=== PATIENT | male | born 1960 | race Caucasian/White ===

== ENCOUNTER → 2016-12-19 | Outpatient (CLI) | payer OTHER ==
[~2016-12-19] MED LIST: REGADENOSON INJ 0.4 MG/5 ML DISP.SYRIN IV ONE
--- NOTE | 2016-12-20 08:20 | RADIOLOGY REPORT ---
STRESS TEST REPORT [id number] RO[facility]#: DATE OF SERVICE: 12/19/2017 AGE: 56Y ORDER#: [id number] REFERRING MD: Rodolfo Solano M.D. INDICATION For assessment of chest pains. PROCEDURE PERFORMED REST/STRESS SINGLE ISOTOPE CARDIOLITE SPECT IMAGING WITH IV LEXISCAN STRESS AND GATED SPECT IMAGING CLINICAL HISTORY This is 56-year-old male patient with no known coronary artery disease, but known to have cerebrovascular disease, hypertension and hypercholesterolemia. Current symptomatology includes chest pains. PROCEDURE The patient received IV Lexiscan 0.4 mg infused over ten seconds and flushed. The resting heart rate was 61 bpm and increased to 101 bpm at end infusion. The resting BP was 133/76 and increased to 155/96 at end infusion. The patient had symptoms of flushing, nausea and transient shortness of breath. He had no chest pains. Resting 12 lead EKG showed normal sinus rhythm at 68 bpm. Early transition, nonspecific infero-apical T-inversions were seen. At end infusion, increased T-inversion,diffuse, was seen on EKG. Myocardial perfusion imaging was performed at rest 60 minutes following injection of 14.99 mCi Cardiolite. Ten seconds after IV Lexiscan injection, patient was injected with 42 mCi Cardiolite and flushed. Gated post stress tomographic imaging was performed 60 minutes after stress. FINDINGS The overall quality of the study is fair. Left ventricular cavity is noted to be normal in size on both the rest and stress studies. There is no evidence of abnormal transient ischemic dilatation of the left ventricle TID ratio was 1.09. SPECT images showed no IV Lexiscan induced reversible ischemia. No fixed perfusion defects. The gated SPECT imaging showed normal motion and contraction of all LV segments. The left ventricular ejection fraction was calculated to be 51%. IMPRESSION: MYOCARDIAL PERFUSION IMAGING IS NORMAL. THERE IS NO EVIDENCE OF IV LEXISCAN INDUCED REVERSIBLE ISCHEMIA OR FIXED PERFUSION DEFECTS. OVERALL LEFT VENTRICULAR SYSTOLIC FUNCTION WAS LOW NORMAL AT 51% AND THERE WAS NO REGIONAL WALL MOTION ABNORMALITY. INTERPRETING PHYSICIAN: BAYLEE ARROYO M.D. /: AMRIT TT: [id number] ID: [id number] /: [id number] TD: [id number] JOB: [id number] cc:Christiane ZAMORA, MD, [facility] > MTDD
== END ==
LOC: RAD 06:50
PROVIDERS: ATTEND Family Medicine
DX: R07.9 Chest pain, unspecified (principal)
CPT/HCPCS: 93017; 78452; A9500; J2785; Q9969

== ENCOUNTER 2018-05-01 23:43 | Emergency (ER) | payer OTHER ==
[2018-05-02] MEDS ORDERED: NORMAL SALINE 1000 ML 1,000 ML IV ONE (00:28)
[2018-05-02] MEDS ORDERED: KETOROLAC TROMETHAMINE INJ/PF 30 MG/1 ML SDV IV ONE (00:28)
[2018-05-02] MEDS ORDERED: ONDANSETRON HCL INJ/PF 4 MG/2 ML SDV IV ONE (00:28)
--- NOTE | 2018-05-02 00:32 | ER Document Report ---
ED General - General Chief Complaint: Flank Pain Stated Complaint: BACK PAIN,TROUBLE URINATING Time Seen by Provider: 05/02/18 00:19 Notes: Patient is a 57-year-old male who presents with complaint of left-sided flank pain that starts in the back and radiates around to the left testicle region. Some nausea. No vomiting. He has noticeable bit of pressure when he urinates and his urine today is been dark. He first noticed the back pain about a week ago and saw his doctor and was treated for a possible pinched nerve in his back. Last few days he developed the pain going to his testicles and the nausea. Movement or twisting is not make pain worse. He does have a previous history of kidney stone. TRAVEL OUTSIDE OF THE [place] IN LAST 30 DAYS: No - Related Data Allergies/Adverse Reactions: No Known Allergies Allergy (Verified 06/24/15 14:28) Past Medical History - Social History Smoking Status: Never Smoker Frequency of alcohol use: None Drug Abuse: None Family History: Reviewed & Not Pertinent - Past Medical History Cardiac Medical History: Denies: Hx Coronary Artery Disease, Hx Heart Attack, Hx Hypertension Pulmonary Medical History: Denies: Hx Asthma, Hx Bronchitis, Hx COPD, Hx Pneumonia, Hx Tuberculosis Neurological Medical History: Denies: Hx Cerebrovascular Accident, Hx Seizures Renal/ Medical History: Reports: Hx Kidney Stones. Denies: Hx Benign Prostatic Hyperplasia, Hx End Stage Renal Disease, Hx Peritoneal Dialysis GI Medical History: Reports: Hx Gastroesophageal Reflux Disease Musculoskeletal Medical History: Denies Hx Arthritis Past Surgical History: - Immunizations Hx Diphtheria, Pertussis, Tetanus Vaccination: No - unsure Hx Pneumococcal Vaccination: 05/19/11 Review of Systems - Review of Systems Notes: My Normal Review Basic REVIEW OF SYSTEMS: CONSTITUTIONAL : Denies fever, chills, or sweats. Denies recent illness. EENT: Denies eye, ear, throat, or mouth pain or symptoms. Denies nasal or sinus congestion. CARDIOVASCULAR: Denies chest pain. RESPIRATORY: Denies cough, cold, or chest congestion. Denies shortness of breath, difficulty breathing, or wheezing. GASTROINTESTINAL: Left flank pain. Some nausea. GENITOURINARY: Dark urine. Some pain rating into the testicle. MUSCULOSKELETAL: Left back pain SKIN: Denies rash or skin lesions. NEUROLOGICAL: Denies altered mental status or loss of consciousness. Denies headache. Denies weakness or paralysis or loss of use of either side. Denies problems with gait or speech. Denies sensory or motor loss. ALL OTHER SYSTEMS REVIEWED AND NEGATIVE. Physical Exam - Vital signs Vitals: Temp Pulse Resp BP Pulse Ox 98.6 F 55 L 18 145/89 H 97 05/01/18 23:51 05/01/18 23:51 05/01/18 23:51 05/01/18 23:51 05/01/18 23:51 - Notes Notes: General Appearance: Well nourished, alert, cooperative, no acute distress, moderate obvious discomfort. Vitals: reviewed, See vital signs table. Head: no swelling or tenderness to the head Eyes: PERRL, EOMI, Conjuctiva clear Mouth: No decreasd moisture Lungs: No wheezing, No rales, No rhonci, No accessory muscle use, good air exchange bilaterally. Heart: Normal rate, Regular rythm, No murmur, no rub Back: Mild pain to palpation of the lumbar spine. No step-offs or deformities. No rash over the back. Abdomen: Normal BS, soft, No rigidity, No reproducible abdominal tenderness to palpation, No guarding, no rebound, no abdominal masses, no organomegaly Extremities: strength 5/5 in all extremities, good pulses in all extremities, no swelling or tenderness in the extremities, no edema. Skin: warm, dry, appropriate color, no rash Neuro: speech clear, oriented x 3, normal affect, responds appropriately to questions. Course - Re-evaluation Re-evalutation: 05/02/18 03:49 Patient's pain is not well controlled. He is no longer nauseous. CT scan confirms finding of distal ureteral stone on the left side. This time feel patient safe to be discharged home. Is to previous kidney stones he has had to have assistance in removal despite them being small. He may need this 1 removed as well and therefore will refer him back to [facility] as that is who is followed with in the past. I encourage him return to ER immediately for some rectal pain, intractable vomiting, fevers, or feels unwell. Patient and his agree with plan and he will be discharged home. Dictation of this chart was performed using voice recognition software; therefore, there may be some unintended grammatical errors. - Vital Signs Vital signs: Temp Pulse Resp BP Pulse Ox 98.6 F 55 L 18 145/89 H 97 05/01/18 23:51 05/01/18 23:51 05/01/18 23:51 05/01/18 23:51 05/01/18 23:51 - Laboratory Laboratory results interpreted by me: 05/02/18 00:36 Urine Protein 100 H Urine Glucose (UA) 50 H Urine Blood LARGE H Discharge - Discharge Clinical Impression: Kidney stone on left side Condition: Good Disposition: HOME, SELF-CARE Additional Instructions: KIDNEY STONE: You are passing or have passed a kidney stone. These stones are usually due to increased calcium or uric acid concentrations in your urine. Stones within the kidney itself are not painful. The pain occurs as the stone leaves the kidney to pass down the long tube, called the ureter, leading to the bladder. If the stone is small, it will usually pass by itself. Most patients can pass the stone at home. You will usually receive medications for pain, nausea or vomiting, and sometimes a medication to assist in passing the kidney stone. However, if the pain is very severe or if vomiting prevents you from taking oral pain medications, you may need to return for further treatment. Drink three or four quarts of fluids per day. You will be given pain medication (if needed) and urine strainers. Strain all your urine to see if the stone passes. If your doctor has asked you to bring the stone in for analysis, return with the stone once it has passed. Return if pain or vomiting become severe, if you develop a high fever, if you are unable to pass your urine, or if other unusual symptoms occur. TORADOL INJECTION: You have been given an injection of ketorolac tromethamine (Toradol). This is an excellent, safe drug for pain control. It also has potent antiinflammatory action. You should have significant pain relief within about one hour. Toradol is not addicting and is non-sedating. It does not interfere with driving or work. Call or return if you develop itching, hives, shortness of breath, or rash. PAIN MEDICATION INJECTION: You have received an injection of a pain medication. You should experience significant pain relief within 45 minutes. This drug is a narcotic - - it will impair your judgement, slow your reaction time and make you sleepy ( as well as relieve your pain). Narcotics also can cause nausea. You should not drive, work with machinery, or perform any task requiring mental alertness until all effects of the medication are gone -- six to eight hours. Do not take any alcohol, or sedatives, and do not take any other medication without checking with your physician. ANTINAUSEA MEDICATION: You have been given a medication to suppress nausea and vomiting. This type of medication can be given as a shot, pill, or suppository. It will usually last for many hours. Pills and shots usually last six to eight hours, suppositories last about 12 hours. For the typical illness, only one or two doses of the medication may be necessary. Mild lightheadedness may occur. This type of medicine can cause drowsiness. Do not drive or operate dangerous machinery while under its influence. Do not mix with alcohol. See your doctor at once if you have muscle spasms or tightness, or uncontrollable motions (particularly of the neck, mouth, or jaw). Persistent vomiting or severe lightheadedness should also be evaluated by the physician. ORAL NARCOTIC MEDICATION: You have been given a prescription for pain control. This medication is a narcotic. It's best taken with food, as nausea can result if taken on an empty stomach. Don't operate machinery or drive within six hours of taking this medication. Do not combine this medicine with alcohol, or with any medication which can cause sedation (such as cold tablets or sleeping pills) unless you get permission from the physician. Narcotics tend to cause constipation. If possible, drink plenty of fluids and eat a diet high in fiber and fruits. Please be aware that prescription narcotics also have the potential for abuse. People become addicted to these medications because of the general sense of wellbeing that they induce. This feeling along with a significant reduction in tension, anxiety, and aggression provides a stimulating seductive quality to these drugs. Once your pain is under control, we encourage you to discard your unused narcotics. FOLLOW-UP CARE: If you have been referred to a physician for follow-up care, call the physician s office for an appointment as you were instructed or within the next two days. If you experience worsening or a significant change in your symptoms, notify the physician immediately or return to the Emergency Department at any time for re-evaluation. Please follow up closely with the urologist. please take the pain medications as prescribed. Please return to the ER immediately if you develop intractable vomiting, intractable pain, fevers, or feel unwell. Prescriptions: Hydrocodone/Acetaminophen [[place] 5-325 mg Tablet] 1 tab PO Q4 PRN #20 tablet PRN Reason: For Breakthrough Pain Ondansetron [Zofran Odt 4 mg Tablet] 1 tab PO Q4H PRN #15 tab.rapdis PRN Reason: For Nausea/Vomiting Forms: Return to Work Referrals: LAYLA WHITMORE MD [NO LOCAL MD] - Follow up tomorrow (call this morning to make a follow up appointment)
[2018-05-02 00:59] LABS: APPEARANCE,URINE CLOUDY; BILIRUBIN,URINE NEGATIVE (NEGATIVE); COLOR,URINE YELLOW; GLUCOSE, URINE 50 mg/dL (NEGATIVE); KETONES,URINE NEGATIVE (NEGATIVE); LEUKOCYTE ESTERASE,URINE NEGATIVE (NEGATIVE); NITRITE,URINE NEGATIVE (NEGATIVE); PROTEIN,URINE 100 mg/dL (NEGATIVE); URINE SPECIFIC GRAVITY 1.028; UROBILINOGEN,URINE NEGATIVE mg/dL (<2.0)
[2018-05-02] MEDS ORDERED: HYDROMORPHONE HCL INJ/PF 2 MG/ML AMPULE IV ONE (01:37)
--- NOTE | 2018-05-02 02:07 | RADIOLOGY REPORT (SQ) ---
CLINICAL HISTORY: left flank pain COMPARISON: None. TECHNIQUE: CT ABDOMEN WITHOUT IV CONTRAST on 05/02/2018 1:35 AM CDT This exam was performed according to our departmental dose-optimization program, which includes automated exposure control, adjustment of the mA and/or kV according to patient size and/or use of iterative reconstruction technique. FINDINGS: Lower lungs are clear. Abdomen: Liver is fatty in attenuation. There is no biliary dilatation. Gallbladder is normal in appearance. The pancreas and spleen are normal in appearance. Adrenal glands are normal. Right kidney is unremarkable. There is a 5 mm mid pole left renal calculus. There is mild left hydronephrosis. There is a 3 mm distal left ureteral calculus. Abdominal aorta is normal in course and caliber without aneurysm. There is no free air. There is no retroperitoneal adenopathy. Pelvis: There is moderate diverticulosis of the distal colon. Urinary bladder is unremarkable. There is no free fluid. Appendix is normal. Skeleton: There are no acute osseous findings. No suspicious bony lesions. IMPRESSION: Left nephrolithiasis with a mildly obstructing 2 mm left distal ureteral calculus.
[2018-05-02] MEDS ORDERED: HYDROCODONE/ACETAMINOPHEN 5-325 MG (6 TAB/ER DISP) PO PRN (03:25)
[2018-05-02] MEDS ORDERED: ONDANSETRON ODT 4 MG TAB (6 TAB/ER DISP) PO PRN (03:26)
[2018-05-02 03:56] VITALS: BP 126/75
== END 2018-05-02 03:56 | disposition home or self-care (01) ==
LOC: ER 23:43
DX: N20.0 Calculus of kidney (principal); R10.9 Unspecified abdominal pain; R11.0 Nausea; Z87.442 Personal history of urinary calculi
CPT/HCPCS: 99284; 96361; 96374; 96375; 81001; 76380; J1885; J1170; J2405; J7030

== ENCOUNTER 2018-09-22 00:45 | Emergency (ER) | payer BC, OTHER ==
[2018-09-22] MEDS ORDERED: MORPHINE SULFATE 10 MG/ML INJ IV PRN ×2 (01:02→02:04)
[2018-09-22] MEDS ORDERED: KETOROLAC TROMETHAMINE INJ/PF 30 MG/1 ML SDV IV ONE ×2 (01:02→02:03)
[2018-09-22] MEDS ORDERED: ONDANSETRON HCL INJ/PF 4 MG/2 ML SDV IV ONE ×2 (01:03→03:34)
[2018-09-22] MEDS ORDERED: NORMAL SALINE 1000 ML 1,000 ML IV ONE (01:03)
[2018-09-22 01:38] LABS: ANION GAP 9 (5-19); BLOOD UREA NITROGEN 22 mg/dL (7-20); CALCIUM 9.3 mg/dL (8.4-10.2); CARBON DIOXIDE 28 mmol/L (22-30); CHLORIDE 105 mmol/L (98-107); GLUCOSE 173 mg/dL (75-110); POTASSIUM 4.2 mmol/L (3.6-5.0); SODIUM 142.4 mmol/L (137-145)
[2018-09-22] MEDS ORDERED: TAMSULOSIN HCL 0.4 MG CAP.SR.24H PO ONE (02:04)
[2018-09-22 02:55] LABS: APPEARANCE,URINE SLIGHTLY-CLOUDY; BILIRUBIN,URINE NEGATIVE (NEGATIVE); CALCIUM OXALATE CRYSTALS,URINE FEW /HPF; COLOR,URINE YELLOW; GLUCOSE, URINE 50 mg/dL (NEGATIVE); KETONES,URINE NEGATIVE (NEGATIVE); LEUKOCYTE ESTERASE,URINE NEGATIVE (NEGATIVE); NITRITE,URINE NEGATIVE (NEGATIVE); PROTEIN,URINE 30 mg/dL (NEGATIVE); URINE SPECIFIC GRAVITY 1.025; UROBILINOGEN,URINE NEGATIVE mg/dL (<2.0)
[2018-09-22] MEDS ORDERED: ONDANSETRON ODT 4 MG TAB (6 TAB/ER DISP) PO PRN (03:27)
--- NOTE | 2018-09-22 03:30 | ER Document Report ---
ED General - General Chief Complaint: Flank Pain Stated Complaint: FLANK PAIN Time Seen by Provider: 09/22/18 01:35 Primary Care Provider: CLEO MUNROE MD [Primary Care Provider] - Follow up as needed Notes: Patient is a 58-year old male with a past medical history of hypertension, multiple prior kidney stones most recently in April 2018 who presents with acute onset of left flank pain with associated nausea but no vomiting. Patient states the pain started abruptly, isolated into his left flank. It is a stab li, severe, constant pain. Tried oral hydromorphone as well as oral hydrocodone at home with no relief. States this feels identical to previous episodes of kidney stones that he has had in the past. Has not seen his general physician or urologist regarding today's concerns. Denies fever or con stitutional symptoms. TRAVEL OUTSIDE OF THE [place] IN LAST 30 DAYS: No - Related Data Allergies/Adverse Reactions: No Known Allergies Allergy (Verified 09/22/18 00:52) Past Medical History - General Information source: Patient - Social History Smoking Status: Never Smoker Frequency of alcohol use: None Drug Abuse: None Lives with: Spouse/Significant other Family History: Reviewed & Not Pertinent Patient has suicidal ideation: No Patient has homicidal ideation: No - Past Medical History Cardiac Medical History: Denies: Hx Coronary Artery Disease, Hx Heart Attack, Hx Hypertension Pulmonary Medical History: Denies: Hx Asthma, Hx Bronchitis, Hx COPD, Hx Pneumonia, Hx Tuberculosis Neurological Medical History: Denies: Hx Cerebrovascular Accident, Hx Seizures Renal/ Medical History: Reports: Hx Kidney Stones. Denies: Hx Benign Prostatic Hyperplasia, Hx End Stage Renal Disease, Hx Peritoneal Dialysis GI Medical History: Reports: Hx Gastroesophageal Reflux Disease Musculoskeletal Medical History: Denies Hx Arthritis Past Surgical History: Reports: Hx Orthopedic Surgery - Immunizations Hx Diphtheria, Pertussis, Tetanus Vaccination: No - unsure Hx Pneumococcal Vaccination: 05/19/11 Review of Systems - Review of Systems Notes: Constitutional: Negative for fever. HENT: Negative for sore throat. Eyes: Negative for visual changes. Cardiovascular: Negative for chest pain. Respiratory: Negative for shortness of breath. Gastrointestinal: Positive for left flank pain, nausea Genitourinary: Negative for dysuria. Musculoskeletal: Negative for back pain. Skin: Negative for rash. Neurological: Negative for headaches, weakness or numbness. 10 point ROS negative except as marked above and in HPI. Physical Exam - Vital signs Vitals: Temp Pulse Resp BP Pulse Ox 97.8 F 55 L 20 175/83 H 98 09/22/18 00:55 09/22/18 00:55 09/22/18 00:55 09/22/18 00:55 09/22/18 00:55 Interpretation: Hypertensive, Bradycardic Notes: PHYSICAL EXAMINATION: GENERAL: Appears moderately uncomfortable but in no acute distress HEAD: Atraumatic, normocephalic. EYES: Pupils equal round and reactive to light, extraocular movements intact, sclera anicteric, conjunctiva are normal. ENT: nares patent, oropharynx clear without exudates. Moderately dry mucous membranes. NECK: Normal range of motion, supple without lymphadenopathy LUNGS: Breath sounds clear to auscultation bilaterally and equal. No wheezes rales or rhonchi. HEART: Regular rate and rhythm without murmurs ABDOMEN: Soft, left CVA tenderness, abdomen otherwise nontender, normoactive bowel sounds. No guarding, no rebound. No masses appreciated. EXTREMITIES: Normal range of motion, no pitting or edema. No cyanosis. NEUROLOGICAL: No focal neurological deficits. Moves all extremities spontaneously and on command. PSYCH: Normal mood, normal affect. SKIN: Warm, Dry, normal turgor, no rashes or lesions noted. Course - Re-evaluation Re-evalutation: 09/22/18 03:28 Presents with findings consistent with acute nephrolithiasis. Urinalysis does show hematuria. Laboratory otherwise unremarkable. Pain was able to be controlled here in the emergency department. Patient is tolerating oral intake. Clinical history is not consistent with an acute abdominal aneurysm or disse ction, ND, or pulmonary embolus. Urinalysis does not show findings consistent with an infected stone. Vitals have remained within normal limits. After risks and benefits conversation the patient has and I have agreed to avoid CT imaging today with a plan to proceed with this imaging study if he is not spontaneously passing the stone within the next 1 week or begins to have uncontrolled symptoms. At this time will discharge with return precautions and follow-up recommendations. Verbal discharge instructions given a the bedside and opportunity for questions given. Medication warnings reviewed. Patient is in agreement with this plan and has verbalized understanding of return precautions and the need for primary care follow-up in the next 24-72 hours. - Vital Signs Vital signs: Temp Pulse Resp BP Pulse Ox 97.8 F 55 L 20 175/83 H 98 09/22/18 00:55 09/22/18 00:55 09/22/18 00:55 09/22/18 00:55 09/22/18 00:55 - Laboratory Result Diagrams: 09/22/18 01:13 Laboratory results interpreted by me: 09/22/18 09/22/18 01:13 02:13 BUN 22 H Creatinine 1.45 H Est GFR (Non-Af Amer) 50 L Glucose 173 H Urine Protein 30 H Urine Glucose (UA) 50 H Urine Blood LARGE H Discharge - Discharge Clinical Impression: Kidney stone on left side, Left flank pain, Nausea Condition: Good Disposition: HOME, SELF-CARE Additional Instructions: Your symptoms should improve over the course of the next one week. If you continue to have pain for greater than one week or your pain is not controlled with the pain medications that you have been sent home with you need to return to the emergency department. Please also return if you develop fever, persistent vomiting, your pain is out of control or worsening, or any other symptoms that are concerning to you. You should take ibuprofen 600 mg every 6 hours as well as Tylenol 1000 mg every 6 hours. Please keep these medications on board at all times whether or not your having pain until you pass the stone. You may use the oral hydromorphone that you already have at home 1 tab every 4 hours as needed for pain not controlled by Tylenol and ibuprofen. You are also been sent home with a medication called Flomax to help pass the stone. You've been given Zofran to assist with nausea. If you have not passed the stone within the next 1 week please follow-up with urology. Prescriptions: Tamsulosin HCl [Flomax 0.4 mg Cap.sr] 0.4 mg PO DAILY #7 cap.sr.24h Referrals: CLEO MUNROE MD [Primary Care Provider] - Follow up in 3-5 days
[2018-09-22] MEDS ORDERED: ONDANSETRON HCL INJ/PF 4 MG/2 ML SDV ONE (03:35)
[2018-09-22 03:42] VITALS: BP 133/81
== END 2018-09-22 03:59 | disposition home or self-care (01) ==
LOC: ER 00:45
DX: N20.0 Calculus of kidney (principal); R31.9 Hematuria, unspecified; R10.9 Unspecified abdominal pain; R11.0 Nausea; I10 Essential (primary) hypertension; R00.1 Bradycardia, unspecified
CPT/HCPCS: 96376; 99284; 96361; 96374; 96375; 36415; 80048; 81001; J1885; J2270; J2405; J7030